=== PATIENT | female | born 1935 | race Caucasian/White ===

== ENCOUNTER 2017-10-05 09:16 | Emergency (ER) | payer MEDICARE, BC, SELFPAY ==
[2017-10-05 09:20] VITALS: BP 155/82; PULSE 90; RESP 17; TEMP 36.7; O2SAT 95; BMI 30.9
--- NOTE | 2017-10-05 09:43 | EKG12_ITS ---
Test Reason : COUGH Blood Pressure : / mmHG Vent. Rate : 079 BPM Atrial Rate : 079 BPM P-R Int : 140 ms QRS Dur : 078 ms QT Int : 372 ms P-R-T Axes : 056 015 082 degrees QTc Int : 426 ms Sinus rhythm with Premature atrial complexes Otherwise normal ECG Confirmed by ELVIN ALEXSI, MARIE ([id number]), news copy editor AUGUSTUS LIU ([id number]) on 10/07/2017 1:45:02 PM Referred By: KELSEY Confirmed By:MARIE OCONNOR MD
[2017-10-05 10:08] LABS: Absolute Lymphocyte Count 1.31 X10^3/ul (0.83-4.51); Absolute Neutrophil Count 8.2 X10^3/uL (2.0-7.7); Basophil# 0.03 X10^3/uL; Basophil% 0.3 % (0-1); Eosinophil# 0.09 X10^3/uL; Eosinophils% 0.9 % (0-5); Lymphocyte # 1.31 X10^3/ul (4.0); Lymphocyte % 12.6 % (19-41); Mean Corp Hgb Conc 34.8 g/gl (32-36); Mean Corpuscular Hgb 32.9 pg (27.0-32.0); Mean Corpuscular Volume 94.5 fL (81-99); Mean Platelet Vol. 9.8 fl (6.2-12.0); Monocyte# 0.67 X10^3/uL; Monocyte% 6.5 % (0-10); Neutrophil # 8.24 X10^3/uL (2.7-7.7); Neutrophil % 79.4 % (47-70); Platelet Count 231 K/mm3 (150-450); RBC Distribution Width CV 12.8 % (11.6-14.6); RBC Distribution Width SD 43.2 fl (35.1-43.9); Red Blood Count 4.87 M/mm3 (4.2-5.4); White Blood Count 10.4 K/mm3 (4.4-11.0)
[2017-10-05 10:12] LABS: POSITIVE COUNT NO; POSITIVE DIFFERENTIAL NO; POSITIVE MORPHOLOGY NO
--- NOTE | 2017-10-05 10:14 | RAD_ITS ---
STUDY: X-RAY CHEST REASON FOR EXAM: Female, 82 years old. Dizziness. Cough. TECHNIQUE: PA and lateral views of the chest. COMPARISON: None. FINDINGS: EKG electrodes are seen. The lungs are clear and expanded. There is no demonstrated pleural abnormality. Normal size heart. Normal mediastinum and melchor. Normal visualized pulmonary arteries. There is atherosclerotic tortuosity of the aortic arch and descending thoracic aorta. There are diffuse degenerative changes of the visualized thoracic spine. Normal visualized ribs, clavicles, and shoulders. There is no demonstrated abnormality of the visualized soft tissue structures of the upper abdomen. RAD/Chest PA and Lateral IMPRESSION: No acute abnormality is present. Electronically Signed: Raji Zepeda MD at 10:39 EDT Tel [phone], Service support ,
[2017-10-05 10:20] LABS: Anion Gap 8 (5-15); BUN 19 mg/dL (7-18); BUN/Creat Ratio 21.8 RATIO (10-20); Calcium,Total 9.3 mg/dL (8.5-10.1); Chloride 103 mmol/L (98-107); Creatinine, Serum 0.87 mg/dL (0.55-1.02); EST Glomerular Filtration Rate 66 mL/min (>60); Est Glom Filt Rate - Afr Amer 80 mL/min (>60); Estimated Creatinine Clearance 39.43 ml/min; Glucose 182 mg/dL (74-106); Potassium 3.4 mmol/L (3.5-5.1); Sodium Level 140 mmol/L (136-145)
[2017-10-05 10:49] VITALS: BP 157/67; BP 160/72; BP 172/80; PULSE 79; PULSE 98; PULSE 99
--- NOTE | 2017-10-05 10:58 | ED.VISSUMM ---
- ER Visit Summary Date of Service: 10/05/17 Chief Complaint: Cough History of Present Illness: The patient is a [address] Manlye. She reports that she has a cough that began yesterday. It is nonproductive. She denies any fever or chills. She reports she has chest pain with coughing only. She reports that she has mild shortness of breath. States that she does feel lightheaded. This is increased with standing and bending over. She has not passed out. Physical Examination: Vitals: Stable. Afebrile. General: Well-nourished and well-developed. Head: Normocephalic atraumatic. Neck: Supple, no lymphadenopathy. No JVD. Nontender. Cardiovascular: Regular rate and rhythm. No murmurs. Respiratory: No respiratory distress. Clear to auscultation bilaterally. Abdominal: Soft, nontender, nondistended, normal bowel sounds. No guarding, rebound, or peritoneal signs. Back: Nontender. Extremities: Nontender, no edema. Skin: Normal color, no rash. Neurologic: Alert and oriented ?3. Cranial nerves II through XII are intact. Normal strength and sensation. Psych: Normal affect. Test Results: Chest x-ray shows chronic changes. No infiltrate. EKG is sinus at 79 with PACs. Is unchanged from 2015. Troponin is negative. Chem-7 marked potassium 3.4, BUN 19, glucose 182. CBC is marked for hemoglobin 16.0, 7 neutrophils 79, leukocytes of 13. Emergency Department Course and Treatment: She is given 500 cc bolus of normal saline. She is to Hillary Grey p.o. She is resting comfortably. Treatment Plan: Patient will be discharged [facility]. Instructed to follow-up with her primary care physician 1 week if not improving. Return to the emergency department for any worsening symptoms. Disposition: To home in improved and stable condition. Impression: 1. URI. This note was generated with [employer] dictation software. It may contain incorrect words, spelling, and punctuation that were not noted in review of the chart prior to signing ED Disposition - Plan for ED Patient: Disposition: Home or Assisted Living Chief Complaint: Cough Instructions: ED Upper Resp Infec No Abx Tx Prescriptions: Benzonatate [Tessalon Perle] 200 mg PO TID PRN PRN #20 capsule PRN Reason: Cough Referrals: Corona Manley DO [Primary Care Provider] - 1 Week if not improving
[2017-10-05 11:10] VITALS: BP 172/80; PULSE 87; RESP 18; O2SAT 96
[2017-10-05] MEDS: Benzonatate 100 MG Capsule 200 MG PO (11:10)
== END 2017-10-05 11:17 | disposition home or self-care (01) ==
PROVIDERS: Emergency Provider Emergency Medicine; Family Provider Student in an Organized Health Care Education/Training Program; PCP Student in an Organized Health Care Education/Training Program
DX: J06.9 Acute upper respiratory infection, unspecified (principal); E11.9 Type 2 diabetes mellitus without complications; I10 Essential (primary) hypertension; E78.00 Pure hypercholesterolemia, unspecified; G47.33 Obstructive sleep apnea (adult) (pediatric); Z79.4 Long term (current) use of insulin; Z79.899 Other long term (current) drug therapy
CPT/HCPCS: 71046; 80048; 83735; 84484; 85025; 93005; 96360; 99285; J7030; J7040; A4216

== ENCOUNTER 2018-08-15 08:35 | Inpatient (IN) | payer MEDICARE, BC, SELFPAY ==
[2018-08-07 14:45] VITALS: BP 140/64; PULSE 66; RESP 18; TEMP 36.3; O2SAT 97; BMI 29.4
--- NOTE | 2018-08-08 20:55 | HP.PCM_ITS ---
History and Physical DATE OF SURGERY: 08/15/2018 SCHEDULED PROCEDURE: Revision right partial total knee to a total knee replacement HISTORY OF PRESENT ILLNESS: This is an 82-year-old female who has been having ongoing pain in the right knee. Patient had a previous partial right total knee arthroplasty in [address] Bailey in [place]. Patient states she did not see any significant improvement after the surgery with regards to her pain. She had decreased motion and had to undergo a manipulation for the right knee. She denied any postoperative infections. She continues to have ongoing pain in the medial aspect of the right knee. She has increased pain going up and down stairs and walking any amount of distance. Patient also has increased pain with prolonged sitting or getting up from a seated position. Patient has been using a stationary bike but does state she has increased pain. She gets intermittent swelling. After discussing treatment options with Dr. Florentino Omalley, the patient does wish to proceed with a revision right partial knee arthroplasty to a right total knee arthroplasty. We have obtained surgical clearance from philip glover's primary care physician Dr. Manley. Patient has a medical history pertinent for type 2 diabetes mellitus, hypertension, and sleep apnea. She currently denies chest pain, shortness of breath, fevers chills, or recent infections. REVIEW OF SYSTEMS: ROS: Const: Denies change in appetite, fever,or weight change. CV: Denies chest pain, heart murmur and irregular heartbeat. Resp: Denies cough, pneumonia, shortness of breath, tuberculosis and wheezing. GI: Denies constipation, diarrhea, heartburn, nausea, rectal itching, bloody stools and vomiting. : Denies incontinence. Musculo: Reports pain, trouble walking and weakness, but denies leg swelling. Skin: Denies Raynaud's, history of shingles and tattoo. Neuro: Reports tremor but denies ambulatory dysfunction, dizziness and numbness/tingling. Psych: Denies anxiety, insomnia and stress. Romeo/Lymph: Denies anemia, bleeding/bruising tendency and past transfusion. Reviewed, no changes. PAST MEDICAL HISTORY: Advance Care Plan: No Advance Directives Effective Date: 10/27/2015 PMH: Medical Problems: Diabetes, High Blood Pressure, Hypercholesterolemia, Sleep Apnea Accidents: None Surgical Hx: Appendectomy - (1979) Tonsillectomy Bilat Knee Replacement - (2008) Bladder Lift, RT Hand Trigger Fingers Anesthesia Complications: None Assistive Devices: Cane Reviewed and updated. SOCIAL HISTORY: SH: Marital: Single.Occupation: Retired.Work Status: Retired.Hand Dominance: Right- handed. Personal Habits: Cigarette Use: Never Smoked Cigarettes.Smokeless Tobacco: Never Used Smokeless Tobacco.Alcohol: Occasionally.Drug Use: Denies Use.Enjoy Exercising: Daily. Reviewed and updated. VITALS: Ht: 62.5 Wt: 161lb Wt k.030 BMI: 29.0 BP: 138/80 Pulse: 70 Resp: 16 T: 97.8 T: 36.6C ALLERGIES: Gemfibrozil Lisinopril Losartan Lovaza Metformin Statins Ciprofloxacin Fenofibrate MEDICATIONS: Lyrica 75 mg 1 tab by mouth every night, Maxzide-25 37.5-25 mg 1 tablet DAILY by mouth, Vitamin D 2000 Unit 1 tablet DAILY by mouth, Humulin 70/30 (70-30) 100 Unit/ML 20 units once daily by injection, Biotin 5000 mcg 1po qday PRE-OP EXAM: General appearance:NORMAL Other: Eyes: Conjunctivae and lids: NORMAL Pupils: ERR Ears, Nose, Mouth, and Throat: NORMAL Other: Inspection of lips, teeth and gums: NORMAL Other: Neck: Examination of neck: no masses noted. Respiratory: Assessment of respiratory effort: NORMAL Other: Auscultation of lungs: clear to auscultation no wheezes, rhonchi or rales. Cardiovascular: Auscultation of heart: regular rate and rhythm, no murmurs, gallops or rubs. Exam of carotid arteries: NORMAL Other: Gastrointestinal: Exam of abdomen: soft, nontender, nondistended bowel sounds present. PHYSICAL EXAMINATION: Patient does walk with an antalgic gait. Previous incision is well-healed without erythema or signs of infection. Patient does have tenderness to palpation over the medial aspect of the right knee. Range of motion right knee: Lacks 3 of full extension to 120 flexion. Stable to varus and valgus stress test. Stable to anterior drawer test. Sensation intact to light touch. IMAGING STUDIES: Previous x-rays does show a Domí[employer]uez [employer] Nephew partial knee replacement with femoral implant appeared to be well fixed. Tibial implant does show on the lateral view lucency under the tibial implant. No acute findings for fracture. IMPRESSION: 1. Painful left unicompartmental knee replacement with lucency under tibial component 2. Hypertension 3. Type 2 diabetes mellitus 4. Sleep apnea 5. Hypercholesterolemia PLAN: Dr. Florentino Omalley did discuss and review with the patient all treatment options including surgical versus nonsurgical options. Patient does wish to proceed with the above-stated procedure. Potential risks, benefits, and complications of the procedure were discussed in detail including but not limited to , infection, nerve and blood vessel damage, persistent pain, numbness, tingling, paresthesias, blood clot, pulmonary embolism, and requirement for possible further surgery. The patient expressed full understanding and has no further questions for the doctor. Patient does agree to proceed with the above-stated procedure and has signed the surgery consent form. This dictation was created using voice recognition software. Phonetic and/or grammatical errors may exist.. ___ I have re-examined the patient. There are no clinical changes since date of exam. ___ See progress notes for changes. ___ Dictated on admission Date: Time: Signature:
[2018-08-15] VITALS (8 sets, daily range): BP systolic 127–156; BP diastolic 45–64; PULSE 67–93; RESP 14–18; TEMP 36.2–36.8; O2SAT 95–100; BMI 29.4
[2018-08-15] MEDS: Lactated Ringers 1,000 ML 999 ML IV (09:21)
[2018-08-15] MEDS: Celecoxib 200 MG Capsule 400 MG PO (09:24)
[2018-08-15] MEDS: Acetaminophen 500 MG Tablet 1000 MG PO ×2 (09:24→22:20)
[2018-08-15 09:41] LABS: Bedside Glucose 183 mg/dL (70-110)
[2018-08-15 09:58] LABS: Anion Gap 10 (5-15); BUN 18 mg/dL (7-18); BUN/Creat Ratio 19.5 RATIO (10-20); Calcium,Total 8.8 mg/dL (8.5-10.1); Chloride 104 mmol/L (98-107); Creatinine, Serum 0.92 mg/dL (0.55-1.02); EST Glomerular Filtration Rate 62 mL/min (>60); Est Glom Filt Rate - Afr Amer 75 mL/min (>60); Estimated Creatinine Clearance 36.64 ml/min; Glucose 166 mg/dL (74-106); Potassium 3.7 mmol/L (3.5-5.1); Sodium Level 142 mmol/L (136-145)
[2018-08-15] MEDS: Cefazolin 2 GM in 0.9% Normal Saline 100 ML IV (10:23)
--- NOTE | 2018-08-15 12:45 | PCM.OPRPT ---
Report of Operation Date of Procedure: 08/15/18 Pre-Operative Diagnosis: Painful right partial knee replacement, aseptic loosening Post-Operative Diagnosis: Painful right partial knee replacement, aseptic loosening Surgery/Procedure Performed:: Revision right total knee replacement entire femoral and tibial components Description of Surgical Findings:: Stable knee with good patella tracking timber rider: Reddy Farmer Type of Anesthesia:: Spinal Anesthesiologist: Al Butterfield Special Medications: 2 g Ancef, 1 g TXA at incision, 1 g TXA closure, 10 mg Decadron, joint cocktail (5 mg Duramorph, 30 mL of 0.5% Ropivicaine, 1000 units of epinephrine, 30 mg of Toradol) Specimen's removed: Bony cuts, 3 separate specimens were sent to micrology Estimated Blood Loss (mL): 50 Fluids Replaced: 1000 ML crystalloid Description of Procedure: Implants used: Femur: Size 3 TS femur, 30 mm x 15 mm cemented stem Tibia: Size 3 universal tibial baseplate Poly: 11 mm PS polyethylene Brief history operative indications: 83-year-old female with previous history of dual Domínguez [employer] Nephew partial knee replacement. Patient had increasing pain. Radiographic evidence of loosening. Infection was ruled out. After this we discussed revision total knee replacement with risks and benefits including but not limited to blood loss, DVTs, PEs, neurovascular damage, infection, general risk of anesthesia including loss of life. Patient demonstrated understanding was able signed informed consent. Procedure: On the date of procedure patient's right lower extremity was marked in the preoperative area. The patient was then taken back to the operating room where the patient was placed on the table in the supine position. All bony prominences were identified a well-padded. Anesthesia assumed control of the C-spine and airway and remained controlled throughout the remainder of the procedure. A tourniquet was placed on the right upper thigh and the leg was prepped in a sterile fashion. The surgeon then scrubbed at this time. Upon reentering the room right lower extremity was draped in a standard orthopedic fashion. A timeout was then called and everyone agreed upon the side, the site, the procedure to be performed, patient's identity and antibiotics given. An Esmarch bandage was used to exsanguinate the extremity and the tourniquet was placed up to 250 mmHg with the knee in flexion. A midline skin incision was made using the previous incision and extending it proximally and distally to identify normal tissue planes. Medial and lateral flaps were developed appropriate releases. The standard medial parapatellar arthrotomy was made and the patella was subluxed laterally. At this time an aggressive synovectomy was performed re-creating the medial gutter first, then the suprapatellar pouch than the lateral gutter. Once this was completed the knee was flexed up an osteotome was used to remove the tibial polyethylene. The remainder of the synovium was debrided. The standard deep MCL release was done and the patella scar pad was resected and lateral releases were performed. Pins were placed in the femur and tibia and mon.ki navigation was used to register the anatomy of the knee. Once this was done we took the knee through range of motion verified alignment. Next our attention was directed to the femur. Wear flexible osteotomes and TPS saw were used to break up the implant cement interface. This was done both medially and laterally. After this is adequately lucent bone tamp was used to remove the femur component from the end of the bone. This was done with minimal bone loss. At this time attention was now directed towards the proximal tibia. Possible osteotome and TPS saw were then used to break up the proximal tibia implant interface and stacked osteotomes were used to remove the tibial implant. This was done with minimal bone loss. Attention was then turned towards the distal femur. Using the navigation guide the distal femoral guide cut was pinned into place in neutral position with 4 degrees of flexion. This allowed a cleanup cut on the medial condyle with a dual was. And a fresh cut on the lateral condyle. Once this was done using our navigation we pinned the cutting guide in the appropriate external rotation. Once the pre-drill holes were made the 3 and 1 cutting guide was put into place cutting anterior chamfer, or anterior condylar cuts, posterior chamfer and posterior condylar cuts. Once this was done the box cutting guide was pinned into place and the box cut was made. The adapter was placed in the TS box cut was made. Once this was done Boss reamer was used to open up the femoral canal. Our attention was directed towards the tibia. Using the previous navigation information the tibial cutting guide was pinned into place for a neutral cut. This gave us a good cleanup cut medially. Once we made the cut using the cell protecting the soft tissues navigation was used to verify the accuracy of the cut. Once were happy with this cut [place] secretary was placed in soft tissue was cleaned up medially and laterally. 40 cc of the periarticular injection were given in the posterior medial corner of the knee. Cautery was used to obtain hemostasis. The appropriate trials were then placed on the femur and tibia. A trial polyethylene was trialed to ensure proper balancing and stability of the knee. Patella tracking, was then verified and corrected appropriately as needed. Our attention was then directed to the patella. The patella was stable with good integrity. This time we elected to keep the previous patella button. Final components were verified and opened, 6 liters of normal saline were irrigated throughout the joint under low-pressure lavage. Then the cement was mixed in a vacuum. [employer] cement with tobramycin was used. The wound was copiously irrigated with normal saline. When the cement was ready the components were cemented into place starting with the tibia, femur. The trial poly component was placed and the knee was placed in full extension. All excess cement was removed in the process. Once the cement had cured the tracking, alignment and balance were verified and a size 11 mm PS polyethylene component was placed. Once the final components were placed the wound was copiously irrigated with normal saline solution and the remainder of the periarticular injection was given. The wound was closed in a layer turner fashion using #1 vicryl interrupted sutures for the arthrotomy, 2-0 interrupted Vicryl for the subcuticular layer and barbi for final skin closure. A sterile compressive dressing was then placed. The patient was then awakened from anesthesia, transferred to the [facility] and transferred to the PACU for recovery. Post op plan DVT ppx: Relative for DVT prophylaxis, thigh high compression stockings Follow up: in office in 2 weeks for wound check PT: to start POD #0 at hospital, outpatient PT should be arranged. My physician life science research assistant was a vital part of this case. He was important in appropriate retraction during the case, and protection of soft tissues during bony cuts. His intimate knowledge of the case and my steps aided in safe and expedient completion of the procedure as well as appropriate position of the leg during the case. He was also vital in assisting with closure under my direct supervision. Grafts/Implants Used: [employer] total knee system - Complications None - Admit VTE Documentation VTE Present on Admission: No VTE Mechan Device Prophylaxis: SCD's, Thigh High PARKER Duque VTE Pharm Prophylaxis ordered?: Yes
[2018-08-15] MEDS: Scopolamine 1mg/72hr Patch 1 PATCH TD (13:17)
--- NOTE | 2018-08-15 13:34 | RAD_ITS ---
STUDY: X-RAY - RIGHT KNEE REASON FOR EXAM: Female, 83 years old. Postop TECHNIQUE: 2 view(s) of the knee. COMPARISON: None. FINDINGS: Normal visualized distal femur. Normal visualized proximal tibia and fibula. Normal proximal tibiofibular articulation. There is right total knee replacement. Alignment is near-anatomic.. There is postoperative change in the soft tissues. There are skin barbi. RAD/Knee 1 or 2 Views IMPRESSION: Right knee replacement. Electronically Signed: Edgar Echeverria MD at 16:44 EST , Service support ,
[2018-08-15] MEDS: Senna/Docusate Sodium 1 Tablet 2 TABLET PO ×2 (15:17→22:20)
[2018-08-15] MEDS: Triamterene 37.5MG/Hctz 25MG Capsule 1 CAP PO (15:17)
[2018-08-15] MEDS: Famotidine 20 MG Tablet PO (15:18)
[2018-08-15] MEDS: Glucerna Shake 120 ML LIQUID PO (16:22)
[2018-08-15] MEDS: Cefazolin 1 GM/50 ML BAG IV (16:22)
[2018-08-15] MEDS: oxyCODONE 5 MG Tablet PO (16:39)
[2018-08-15 17:16] LABS: Bedside Glucose 113 mg/dL (70-110)
--- NOTE | 2018-08-15 17:22 | PCM.CONS.GEN ---
Problem List (1) Osteoarthritis Status: Acute Qualifiers: Osteoarthritis location: knee Osteoarthritis type: unspecified Laterality: right Qualified Code(s): M17.11 - Unilateral primary osteoarthritis, right knee (2) HTN (hypertension) Status: Chronic Qualifiers: Hypertension type: essential hypertension Qualified Code(s): I10 - Essential (primary) hypertension (3) HLD (hyperlipidemia) Status: Chronic Qualifiers: Hyperlipidemia type: pure hypercholesterolemia Qualified Code(s): E78.00 - Pure hypercholesterolemia, unspecified; E78.0 - Pure hypercholesterolemia (4) DEVAN (obstructive sleep apnea) Status: Chronic (5) Diabetes mellitus, type II Status: Chronic Qualifiers: Diabetes mellitus alf insulin use: with alf use Diabetes mellitus complication status: with unspecified complications Qualified Code(s): E11.8 - Type 2 diabetes mellitus with unspecified complications; Z79.4 - ad terminal makeup operator (current) use of insulin Reason for Consult Date of Consultation: 08/15/18 Reason for Consultation: Medical management History of Present Illness: The patient is a 83 y/o F w/ PMHx: DEVAN, HTN, HLD, Diabetes mellitus type II, Severe OA who presents to the [facility] on 08/15/18 for planned revision right partial total knee to a total knee replacement secondary to failed conservative interventions with noted no market improvement following her initial replacement in 2010 with decreased of motion, debility with primarily medial aspect pain noted worsened with activity especially going up and down the stairs or prolonged walking however also increased if she remained seated for a long time especially with an attempt to get up. Had no perioperative events did have a bout of emesis following first meal intake with some nausea but has been up and moving and walking in the room with resolution of block with requested medical management evaluation per orthopedic surgery. Past Medical History Past Medical History (Chronic Problems): Chronic Problems HTN (hypertension) (Chronic) HLD (hyperlipidemia) (Chronic) DEVAN (obstructive sleep apnea) (Chronic) Diabetes mellitus, type II (Chronic) Allergies omega-3 acid ethyl esters [From Lovaza] Allergy (Verified 08/14/18 13:18) Shortness of breath aspirin Adverse Reaction (Verified 08/07/18 14:28) Upset Stomach ciprofloxacin [From Cipro] Adverse Reaction (Verified 08/07/18 14:28) Unknown fenofibrate Adverse Reaction (Verified 08/07/18 14:28) Upset Stomach gemfibrozil Adverse Reaction (Verified 08/07/18 14:28) Diarrhea lisinopril Adverse Reaction (Verified 08/07/18 14:28) Unknown losartan Adverse Reaction (Verified 08/07/18 14:28) Unknown metformin Adverse Reaction (Verified 08/07/18 14:28) Upset Stomach Bhsoyez-Iab-Swg Reductase Inhibitor Adverse Reaction (Verified 08/07/18 14:28) Upset Stomach Home Medications: Ambulatory Orders Medication Instructions Recorded Cholecalciferol (VIT D3) [Vitamin 2,000 unit PO DAILY 03/09/16 D] Triamterene/Hydrochlorothiazid 1 tab PO DAILY 03/09/16 [Triamterene-Hctz 37.5-25 mg Tb] Biotin 5,000 mcg PO DAILY 08/07/18 Insulin NPH Human Isophane 40 units SQ DAILY 08/15/18 [Novolin N] Surgical History: - - Appendectomy, tonsillectomy, bilateral total knee replacements, bladder lift, right hand trigger finger surgery. 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 Paternal History Items: - - Patient states she does not know her paternal family history. Review of Systems Constitutional: Reports: Malaise, Weakness, Fatigue. Denies: Chills, Fever, Weight Change HEENT: Denies: Head Aches, Sinus Congestion, Sinus Drainage Cardiovascular: Denies: Chest Pain, Palpitations Respiratory: Denies: Cough, Shortness of breath at rest, Sputum production Gastrointestinal: Reports: Nausea, Vomiting. Denies: Abdominal Pain Genitourinary: Denies: Dysuria Musculoskeletal: Reports: Joint Pain, Joint stiffness, Joint swelling, Joint Tenderness, Leg Pain Skin: Reports: Skin Changes. Denies: Rash, Wounds Neurological: Denies: Numbness, Tingling, Focal weakness Psychiatric: Reports: Anxiety, Depression. Denies: Homicidal Ideations, Suicidal Ideations Hematologic/ Lymphatic: Denies: Easy Bruising, Easy Bleeding Patient Problems: Active and Suspected Problems Osteoarthritis (Acute) Subjective: Laying in the bed, fatigued appearance, notes bout of emesis following recent meal. Objective: Physical Examination: General: awake, alert, oriented x 3 and cooperative, seated upright in the bed in no apparent distress, but does note recent bout emesis following meal. Skin: normal color, turgor, no icterus, cyanosis, s/p R TKR revision, dressing in place. HEENT: AT/NC, EOMI, PERRLA, mildly dry MM, no carotid bruits or JVD noted. Lungs: CTA bilaterally, moderate effort, mild decrease BL bases, no rales, ronchi or wheezing. Heart: Regular rate and rhythm; no gallop, rub audible. Abdomen: soft, NTTP, ND, normal BS, no HSM. Extremities: no cyanosis, clubbing, s/p R Knee replacement revision with dressing in place, block has worn off, moving extremity, distal pulses intact. Neurological: patient awake, alert, oriented x 3; cognitive function intact; pupils equally reactive to light and accomodation; cranial nerves II-XII grossly normal, moving all 4 extremities although limited RLE s/p R TKR revision, dressing in place, strength accordingly moderately to severely globally decreased. Psychiatric: affect appears normal, fatigued, no acute evidence of depressive or anxiety feelings. - Physical Exam Vital Signs Temp Pulse Resp BP Pulse Ox 97.5 F L 67 18 132/55 H 96 08/15/18 16:18 08/15/18 16:18 08/15/18 16:18 08/15/18 16:18 08/15/18 16:18 Oxygen Delivery Method Room Air Weight: 160 lb 11.834 oz Body Mass Index (BMI) 29.4 Intake and Output for Last 24 Hours 08/13/18 08/14/18 08/15/18 23:59 23:59 23:59 Intake Total 1400 / 1400 Balance 1400 / 1400 Laboratory Tests Past 24 Hrs 08/15/18 09:35 Sodium 142 Potassium 3.7 Chloride 104 Carbon Dioxide 28.0 Anion Gap 10 BUN 18 Creatinine 0.92 Estim Creat Clear Calc 36.64 Est GFR (MDRD) Af Amer 75 Est GFR (MDRD) Non-Af 62 BUN/Creatinine Ratio 19.5 Glucose 166 H Calcium 8.8 POC Glucose 08/15/18 08/15/18 16:15 09:19 POC Glucose 113 H 183 H Assessment/Plan All Active Problems Osteoarthritis (Acute) The patient is a 83 y/o F w/ PMHx: DEVAN, HTN, HLD, Diabetes mellitus type II, Severe OA who presents to the [facility] on 08/15/18 for planned revision right partial total knee to a total knee replacement secondary to failed conservative interventions. (1) Severe Osteoarthritis, R Knee: Failed conservative therapies and treatments, no marked pain relief following initial replacement 2010, progressively worsening, admitted per Dr. Omalley for planned R knee revision, post-operative pain management, bowel regimen, DVT Prophylaxis, PT/OT/CM per Orthopedic surgery discretion. With some postoperative nausea without emesis following first initial meal, patient has 2 antiemetics available and discussed this with nursing. (2) Diabetes mellitus type II: Continue home insulin regimen, ADA diet, accu checks w/ ISS. (3) Hypertension: Continue home regimen including triamterene, hydrochlorothiazide, PRN hydralazine. (4) Hyperlipidemia: Not on regimen, several allergies noted alluding to statin, fenofibrate, gemfibrozil, Lovaza although suspicious given this is only filtered fish oil. (5) DEVAN: Patient is noncompliant with CPAP and has been so for many years, encouraged patient to consideration for reassessment as several new face and nasal masks available. (6) GERD: Famotidine. (7) DVT prophylaxis: SCD, Xarelto per orthopedic surgery discretion. Code Visit Inpatient E&M: 74319 Subs Hosp L3
--- NOTE | 2018-08-15 17:27 | CON.PCM_ITS ---
Problem List (1) Osteoarthritis Status: Acute Qualifiers: Osteoarthritis location: knee Osteoarthritis type: unspecified Laterality: right Qualified Code(s): M17.11 - Unilateral primary osteoarthritis, right knee (2) HTN (hypertension) Status: Chronic Qualifiers: Hypertension type: essential hypertension Qualified Code(s): I10 - Essential (primary) hypertension (3) HLD (hyperlipidemia) Status: Chronic Qualifiers: Hyperlipidemia type: pure hypercholesterolemia Qualified Code(s): E78.00 - Pure hypercholesterolemia, unspecified; E78.0 - Pure hypercholesterolemia (4) DEVAN (obstructive sleep apnea) Status: Chronic (5) Diabetes mellitus, type II Status: Chronic Qualifiers: Diabetes mellitus detention insulin use: with detention use Diabetes mellitus complication status: with unspecified complications Qualified Code(s): E11.8 - Type 2 diabetes mellitus with unspecified complications; Z79.4 - termite treater (current) use of insulin Reason for Consult Date of Consultation: 08/15/18 Reason for Consultation: Medical management History of Present Illness: The patient is a 83 y/o F w/ PMHx: DEVAN, HTN, HLD, Diabetes mellitus type II, Severe OA who presents to the [facility] on 08/15/18 for planned revision right partial total knee to a total knee replacement secondary to failed conservative interventions with noted no market improvement following her initial replacement in 2010 with decreased of motion, debility with primarily medial aspect pain noted worsened with activity especially going up and down the stairs or prolonged walking however also increased if she remained seated for a long time especially with an attempt to get up. Had no perioperative events did have a bout of emesis following first meal intake with some nausea but has been up and moving and walking in the room with resolution of block with requested medical management evaluation per orthopedic surgery. Past Medical History Past Medical History (Chronic Problems): Chronic Problems HTN (hypertension) (Chronic) HLD (hyperlipidemia) (Chronic) DEVAN (obstructive sleep apnea) (Chronic) Diabetes mellitus, type II (Chronic) Allergies omega-3 acid ethyl esters [From Lovaza] Allergy (Verified 08/14/18 13:18) Shortness of breath aspirin Adverse Reaction (Verified 08/07/18 14:28) Upset Stomach ciprofloxacin [From Cipro] Adverse Reaction (Verified 08/07/18 14:28) Unknown fenofibrate Adverse Reaction (Verified 08/07/18 14:28) Upset Stomach gemfibrozil Adverse Reaction (Verified 08/07/18 14:28) Diarrhea lisinopril Adverse Reaction (Verified 08/07/18 14:28) Unknown losartan Adverse Reaction (Verified 08/07/18 14:28) Unknown metformin Adverse Reaction (Verified 08/07/18 14:28) Upset Stomach Gyfhpzm-Mbc-Mup Reductase Inhibitor Adverse Reaction (Verified 08/07/18 14:28) Upset Stomach Home Medications: Ambulatory Orders Medication Instructions Recorded Cholecalciferol (VIT D3) [Vitamin 2,000 unit PO DAILY 03/09/16 D] Triamterene/Hydrochlorothiazid 1 tab PO DAILY 03/09/16 [Triamterene-Hctz 37.5-25 mg Tb] Biotin 5,000 mcg PO DAILY 08/07/18 Insulin NPH Human Isophane 40 units SQ DAILY 08/15/18 [Novolin N] Surgical History: - - Appendectomy, tonsillectomy, bilateral total knee replacements, bladder lift, right hand trigger finger surgery. 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 Paternal History Items: - - Patient states she does not know her paternal family history. Review of Systems Constitutional: Reports: Malaise, Weakness, Fatigue. Denies: Chills, Fever, Weight Change HEENT: Denies: Head Aches, Sinus Congestion, Sinus Drainage Cardiovascular: Denies: Chest Pain, Palpitations Respiratory: Denies: Cough, Shortness of breath at rest, Sputum production Gastrointestinal: Reports: Nausea, Vomiting. Denies: Abdominal Pain Genitourinary: Denies: Dysuria Musculoskeletal: Reports: Joint Pain, Joint stiffness, Joint swelling, Joint Tenderness, Leg Pain Skin: Reports: Skin Changes. Denies: Rash, Wounds Neurological: Denies: Numbness, Tingling, Focal weakness Psychiatric: Reports: Anxiety, Depression. Denies: Homicidal Ideations, Suicidal Ideations Hematologic/ Lymphatic: Denies: Easy Bruising, Easy Bleeding Patient Problems: Active and Suspected Problems Osteoarthritis (Acute) Subjective: Laying in the bed, fatigued appearance, notes bout of emesis following recent meal. Objective: Physical Examination: General: awake, alert, oriented x 3 and cooperative, seated upright in the bed in no apparent distress, but does note recent bout emesis following meal. Skin: normal color, turgor, no icterus, cyanosis, s/p R TKR revision, dressing in place. HEENT: AT/NC, EOMI, PERRLA, mildly dry MM, no carotid bruits or JVD noted. Lungs: CTA bilaterally, moderate effort, mild decrease BL bases, no rales, ronchi or wheezing. Heart: Regular rate and rhythm; no gallop, rub audible. Abdomen: soft, NTTP, ND, normal BS, no HSM. Extremities: no cyanosis, clubbing, s/p R Knee replacement revision with dressing in place, block has worn off, moving extremity, distal pulses intact. Neurological: patient awake, alert, oriented x 3; cognitive function intact; pupils equally reactive to light and accomodation; cranial nerves II-XII grossly normal, moving all 4 extremities although limited RLE s/p R TKR revision, dressing in place, strength accordingly moderately to severely globally decreased. Psychiatric: affect appears normal, fatigued, no acute evidence of depressive or anxiety feelings. - Physical Exam Vital Signs Temp Pulse Resp BP Pulse Ox 97.5 F L 67 18 132/55 H 96 08/15/18 16:18 08/15/18 16:18 08/15/18 16:18 08/15/18 16:18 08/15/18 16:18 Oxygen Delivery Method Room Air Weight: 160 lb 11.834 oz Body Mass Index (BMI) 29.4 Intake and Output for Last 24 Hours 08/13/18 08/14/18 08/15/18 23:59 23:59 23:59 Intake Total 1400 / 1400 Balance 1400 / 1400 Laboratory Tests Past 24 Hrs 08/15/18 09:35 Sodium 142 Potassium 3.7 Chloride 104 Carbon Dioxide 28.0 Anion Gap 10 BUN 18 Creatinine 0.92 Estim Creat Clear Calc 36.64 Est GFR (MDRD) Af Amer 75 Est GFR (MDRD) Non-Af 62 BUN/Creatinine Ratio 19.5 Glucose 166 H Calcium 8.8 POC Glucose 08/15/18 08/15/18 16:15 09:19 POC Glucose 113 H 183 H Assessment/Plan All Active Problems Osteoarthritis (Acute) The patient is a 83 y/o F w/ PMHx: DEVAN, HTN, HLD, Diabetes mellitus type II, Severe OA who presents to the [facility] on 08/15/18 for planned revision right partial total knee to a total knee replacement secondary to failed conservative interventions. (1) Severe Osteoarthritis, R Knee: Failed conservative therapies and treatments, no marked pain relief following initial replacement 2010, progressively worsening, admitted per Dr. Omalley for planned R knee revision, post-operative pain management, bowel regimen, DVT Prophylaxis, PT/OT/CM per Orthopedic surgery discretion. With some postoperative nausea without emesis following first initial meal, patient has 2 antiemetics available and discussed this with nursing. (2) Diabetes mellitus type II: Continue home insulin regimen, ADA diet, accu checks w/ ISS. (3) Hypertension: Continue home regimen including triamterene, hydrochlorothiazide, PRN hydralazine. (4) Hyperlipidemia: Not on regimen, several allergies noted alluding to statin, fenofibrate, gemfibrozil, Lovaza although suspicious given this is only filtered fish oil. (5) DEVAN: Patient is noncompliant with CPAP and has been so for many years, encouraged patient to consideration for reassessment as several new face and nasal masks available. (6) GERD: Famotidine. (7) DVT prophylaxis: SCD, Xarelto per orthopedic surgery discretion. Code Visit Inpatient E&M: 55858 Subs Hosp L3
[2018-08-15] MEDS: proMETHazine 25 MG/ML Syringe 12.5 MG IM (18:03)
[2018-08-15] MEDS: Insulin Lispro 100 UNIT/ML INSULN.PEN SC (22:19)
[2018-08-15] MEDS: Meloxicam 7.5 MG Tablet PO (22:20)
[2018-08-15 22:56] LABS: Bedside Glucose 152 mg/dL (70-110)
[2018-08-16 00:11] VITALS: BP 119/48; PULSE 61; RESP 16; TEMP 36.6; O2SAT 92
[2018-08-16] MEDS: Cefazolin 1 GM/50 ML BAG IV (03:00)
[2018-08-16] MEDS: Ketorolac 15 MG/ML Vial IV (03:47)
[2018-08-16 06:32] LABS: Hemoglobin 13.5 g/dl (12.0-15.0); Mean Corp Hgb Conc 32.9 g/gl (32-36); Mean Corpuscular Hgb 31.5 pg (27.0-32.0); Mean Corpuscular Volume 95.8 fL (81-99); Mean Platelet Vol. 10.5 fl (6.2-12.0); Platelet Count 189 K/mm3 (150-450); RBC Distribution Width CV 12.6 % (11.6-14.6); RBC Distribution Width SD 42.8 fl (35.1-43.9); Red Blood Count 4.28 M/mm3 (4.2-5.4)
[2018-08-16 06:47] LABS: Scan Indicated on CBC? Y/N NO
[2018-08-16] MEDS: oxyCODONE 5 MG Tablet PO ×2 (06:47→11:34)
[2018-08-16] MEDS: Rivaroxaban 10 MG Tablet PO (06:48)
[2018-08-16] MEDS: Acetaminophen 500 MG Tablet 1000 MG PO ×2 (06:48→14:03)
[2018-08-16 06:49] LABS: Anion Gap 9 (5-15); BUN 17 mg/dL (7-18); Calcium,Total 8.3 mg/dL (8.5-10.1); Chloride 106 mmol/L (98-107); Creatinine, Serum 0.81 mg/dL (0.55-1.02); EST Glomerular Filtration Rate 72 mL/min (>60); Est Glom Filt Rate - Afr Amer 87 mL/min (>60); Estimated Creatinine Clearance 41.62 ml/min; Glucose 93 mg/dL (74-106); Potassium 3.8 mmol/L (3.5-5.1); Sodium Level 141 mmol/L (136-145)
[2018-08-16 06:56] LABS: Bedside Glucose 106 mg/dL (70-110)
--- NOTE | 2018-08-16 07:05 | PCM.PN.HOSP ---
Subjective: Patient with no acute events overnight per self and per nursing report. Following emesis bout the evening prior she had no further marked nausea or emesis and has been up to the bedside chair, ambulating with device assist with pain well controlled and toleration of her meals. Upon evaluation she notes eagerness for evaluation for therapies so she can be discharged home. Patient denies fevers, chills, nausea, emesis, abdominal pain, chest pain or dyspnea. Objective: Physical Examination: General: awake, alert, oriented x 3 and cooperative, seated upright in the bedside chair, improved appearance, eating, NAD. Skin: normal color, turgor, no icterus, cyanosis, s/p R TKR revision, dressing in place. HEENT: AT/NC, EOMI, PERRLA, improved MMM. Lungs: CTA bilaterally, moderate effort, mild decrease BL bases, no rales, ronchi or wheezing. Heart: Regular rate and rhythm; no gallop, rub audible. Abdomen: soft, NTTP, ND, normal BS. Extremities: no cyanosis, clubbing, s/p R Knee replacement revision with dressing in place. Neurological: patient awake, alert, oriented x 3; cognitive function intact; pupils equally reactive to light and accomodation; cranial nerves II-XII grossly normal, moving all 4 extremities although limited RLE s/p R TKR revision, dressing in place, strength improved, mildly to moderately globally decreased. Psychiatric: affect appears normal, no acute evidence of depressive or anxiety feelings. Vitals/I&O's: Vital Signs Temp Pulse Resp BP Pulse Ox 98 F 61 16 119/48 L 92 08/16/18 00:11 08/16/18 00:11 08/16/18 00:11 08/16/18 00:11 08/16/18 00:11 Oxygen Delivery Method Room Air Weight: 160 lb 11.834 oz Body Mass Index (BMI) 29.4 Intake and Output for Last 24 Hours 08/14/18 08/15/18 08/16/18 23:59 23:59 23:59 Intake Total 2185 / 2185 605 / 605 Balance 2185 / 2185 605 / 605 Laboratory Results 08/15/18 09:19: POC Glucose 183 H 08/15/18 09:35: Sodium 142, Potassium 3.7, Chloride 104, Carbon Dioxide 28.0, Anion Gap 10, BUN 18, Creatinine 0.92, Estim Creat Clear Calc 36.64, Est GFR (MDRD) Af Amer 75, Est GFR (MDRD) Non-Af 62, BUN/Creatinine Ratio 19.5, Glucose 166 H, Calcium 8.8 08/15/18 09:35: Magnesium 2.0 08/15/18 16:15: POC Glucose 113 H 08/15/18 22:17: POC Glucose 152 H 08/16/18 05:34: WBC 9.0, RBC 4.28, Hgb 13.5, Hct 41.0, MCV 95.8, MCH 31.5, MCHC 32.9, RDW 12.6, RDW Differential 42.8, Plt Count 189, MPV 10.5 08/16/18 05:34: Sodium 141, Potassium 3.8, Chloride 106, Carbon Dioxide 26.0, Anion Gap 9, BUN 17, Creatinine 0.81, Estim Creat Clear Calc 41.62, Est GFR (MDRD) Af Amer 87, Est GFR (MDRD) Non-Af 72, BUN/Creatinine Ratio 21.0 H, Glucose 93, Calcium 8.3 L 08/16/18 06:46: POC Glucose 106 Current Medications Acetaminophen (Tylenol) 1,000 mg PO Q8 [facility] Last Admin: 08/16/18 06:48 Dose: 1,000 mg Cholecalciferol (Vitamin D) [facility] Last Admin: 08/15/18 15:17 Dose: 2,000 unit Doxycycline Monohydrate (Doxycycline) 100 mg PO BID [facility] Famotidine (Pepcid) 20 mg PO DAILY [facility] Last Admin: 08/15/18 15:18 Dose: 20 mg Hydralazine HCl (Apresoline Iv) 10 mg IV Q4H PRN PRN PRN Reason: SBP > 160 Insulin Human Lispro (Humalog Kwikpen (Bkc)) 0 unit SC [facility]; Protocol Last Admin: 08/16/18 06:48 Dose: Not Given Ketorolac Tromethamine (Toradol) 15 mg IV Q6H PRN PRN PRN Reason: MILD-MOD PAIN (1-5/10) Last Admin: 08/16/18 03:47 Dose: 15 mg Meloxicam (Mobic) 7.5 mg PO BID [facility] Last Admin: 08/15/18 22:20 Dose: 7.5 mg Morphine Sulfate () 2 - 4 mg IV Q2H PRN PRN PRN Reason: SEVERE PAIN (6-10/10) Nutritional Formula (Lactose Free) (Glucerna Shake) 120 ml PO TIDCM [facility] Last Admin: 08/15/18 16:22 Dose: 120 ml Ondansetron HCl (Zofran) 4 mg IV Q8H PRN PRN PRN Reason: NAUSEA Oxycodone HCl (Oxyir) 5 - 10 mg PO Q4H PRN PRN PRN Reason: MOD-SEVERE PAIN (4-10/10) Last Admin: 08/16/18 06:47 Dose: 5 mg Promethazine HCl (Phenergan) 12.5 mg IM Q6H PRN PRN; Protocol PRN Reason: NAUSEA/VOMITING Last Admin: 08/15/18 18:03 Dose: 12.5 mg Rivaroxaban (Xarelto) 10 mg PO DAILY@0600 [facility] Last Admin: 08/16/18 06:48 Dose: 10 mg Senna/Docusate Sodium (Senokot-S, Suzanne-Colace) 2 tablet PO BID [facility] Last Admin: 08/15/18 22:20 Dose: 2 tablet Sodium Chloride () 5 - 15 ml IV UD PRN PRN Reason: SALINE FLUSH Triamterene/HCTZ (Dyazide (G)) 1 cap PO DAILY [facility] Last Admin: 08/15/18 15:17 Dose: 1 cap Medical Necessity - Tobacco Use Smoking Status: Never smoker Tobacco Use: Non-smoker Assessment/Plan All Active Problems Osteoarthritis (Acute) The patient is a 83 y/o F w/ PMHx: DEVAN, HTN, HLD, Diabetes mellitus type II, Severe OA who presents to the [facility] on 08/15/18 for planned revision right partial total knee to a total knee replacement secondary to failed conservative interventions. (1) Severe Osteoarthritis, R Knee: Failed conservative therapies and treatments, no marked pain relief following initial replacement 2010, progressively worsening, admitted per Dr. Omalley for planned R knee revision, post-operative pain management, bowel regimen, DVT Prophylaxis, PT/OT/CM per Orthopedic surgery discretion. Episode of postoperative nausea with emesis following first initial meal, improved, resolved with antiemetic therapies. Tolerating meals this morning, pending PT and OT assessment with plan for outpatient therapies and given patient ambulating in the room with device suspect we will continue with this plan. (2) Diabetes mellitus type II: Continue home insulin regimen, ADA diet, accu checks w/ ISS. (3) Hypertension: Continue home regimen triamterene, hydrochlorothiazide, PRN hydralazine. (4) Hyperlipidemia: Not on regimen, several allergies noted alluding to statin, fenofibrate, gemfibrozil, Lovaza although suspicious given this is only filtered fish oil. (5) DEVAN: Patient is noncompliant with CPAP and has been so for many years, encouraged patient to consideration for reassessment as several new face and nasal masks available. (6) GERD: Famotidine. (7) DVT prophylaxis: RUBIA, Xarelto per orthopedic surgery discretion. Code Visit Inpatient E&M: 19225 Subs Hosp L2
--- NOTE | 2018-08-16 07:05 | PCM.PN.ORT ---
Patient Problems: Active and Suspected Problems Osteoarthritis (Acute) Subjective: The patient was sitting in bed upon examination. Patient denies any chest pain, shortness of breath, dizziness, lightheadedness, nausea or vomiting, or calf pain. Pain is controlled on medications. No adverse overnight events. Overall patient is doing well right now with regards to pain. Patient did have a block postoperatively. Plan is for patient to go home when medically ready. Objective: Vital signs stable and afebrile. Patient is able to plantarflex and dorsiflex actively. Sensation is intact to light touch to saphenous, sural, superficial and deep peroneal, and tibial distribution. Dressing is clean dry and intact. Negative Homans bilaterally, negative signs and symptoms of DVT. - Physical Exam General: Alert, Oriented x3, Cooperative, No apparent distress Vital Signs Temp Pulse Resp BP Pulse Ox 98 F 61 16 119/48 L 92 08/16/18 00:11 08/16/18 00:11 08/16/18 00:11 08/16/18 00:11 08/16/18 00:11 Oxygen Delivery Method Room Air Weight: 72.91 kg Body Mass Index (BMI) 29.4 Intake and Output for Last 24 Hours 08/14/18 08/15/18 08/16/18 23:59 23:59 23:59 Intake Total 2185 / 2185 605 / 605 Balance 2185 / 2185 605 / 605 Laboratory Tests Past 24 Hrs 08/15/18 08/15/18 08/16/18 09:35 09:35 05:34 WBC 9.0 RBC 4.28 Hgb 13.5 Hct 41.0 MCV 95.8 MCH 31.5 MCHC 32.9 RDW 12.6 RDW Differential 42.8 Plt Count 189 MPV 10.5 Sodium 142 Potassium 3.7 Chloride 104 Carbon Dioxide 28.0 Anion Gap 10 BUN 18 Creatinine 0.92 Estim Creat Clear Calc 36.64 Est GFR (MDRD) Af Amer 75 Est GFR (MDRD) Non-Af 62 BUN/Creatinine Ratio 19.5 Glucose 166 H Calcium 8.8 Magnesium 2.0 08/16/18 05:34 WBC RBC Hgb Hct MCV MCH MCHC RDW RDW Differential Plt Count MPV Sodium 141 Potassium 3.8 Chloride 106 Carbon Dioxide 26.0 Anion Gap 9 BUN 17 Creatinine 0.81 Estim Creat Clear Calc 41.62 Est GFR (MDRD) Af Amer 87 Est GFR (MDRD) Non-Af 72 BUN/Creatinine Ratio 21.0 H Glucose 93 Calcium 8.3 L Magnesium POC Glucose 08/16/18 08/15/18 08/15/18 06:46 22:17 16:15 POC Glucose 106 152 H 113 H 08/15/18 09:19 POC Glucose 183 H Medical Necessity - Tobacco Use Smoking Status: Never smoker Tobacco Use: Non-smoker Assessment/Plan All Active Problems Osteoarthritis (Acute) 1. 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 Continue Pain Medications: Tylenol and OxyIR 3. DVT Prophylaxis: Xarelto times 2 weeks 4. PT/OT: Weightbearing as tolerated 5. H & H: 13.5/41.0, asymptomatic 6. Encouraged Incentive Spirometry 7. Continue postoperative medical management per medicine 8. Continue antibiotic while following culture: Currently on doxycycline. Cultures are pending 9. Disposition: Plan will be for possible discharge home today if patient is medically stable, pain is well controlled, and patient tolerates physical therapy. Prescriptions will be attached to chart. Patient will follow-up per postop instructions.
--- NOTE | 2018-08-16 07:11 | PCM.DC.TKR ---
Discharge Diet: No Restrictions, 1800 Calorie Control Diet Discharge Activity: May Not Drive May shower in (days): 1 - Turned dressing away from water Ice area for (Minutes): 20 - every hour while awake. Weight Bearing Status: Weight bearing as tolerated Elevate: Operative Extremity Additional Activity Instructions:: Wear elastic stockings for 2 weeks after your surgery. Call your doctor if your incision/area has: Continuous Slow Oozing, Sudden Increased Bleeding, Increased Pain/ Swelling, Increased Redness, Foul Smelling Discharge Call your doctor if you observe: Fever of 101 or Higher, Coldness, Increased Pain, Numbness or Tingling, Change in Color, Calf discomfort, Uncontrolled pain Remove Dressing in (days):: 4 - Okay to remove on August 20, 2018 Additional Instructions: Follow [facility] postop instructions Allergies/Adverse Reactions: Allergies omega-3 acid ethyl esters [From Lovaza] Allergy (Verified 08/14/18 13:18) Shortness of breath aspirin Adverse Reaction (Verified 08/07/18 14:28) Upset Stomach ciprofloxacin [From Cipro] Adverse Reaction (Verified 08/07/18 14:28) Unknown fenofibrate Adverse Reaction (Verified 08/07/18 14:28) Upset Stomach gemfibrozil Adverse Reaction (Verified 08/07/18 14:28) Diarrhea lisinopril Adverse Reaction (Verified 08/07/18 14:28) Unknown losartan Adverse Reaction (Verified 08/07/18 14:28) Unknown metformin Adverse Reaction (Verified 08/07/18 14:28) Upset Stomach Kprjjtr-Ywr-Xwu Reductase Inhibitor Adverse Reaction (Verified 08/07/18 14:28) Upset Stomach Medications to take at Discharge Cholecalciferol (VIT D3) [Vitamin D3] 2,000 unit PO DAILY 03/09/16 Triamterene/Hydrochlorothiazid [Triamterene-Hctz 37.5-25 mg Tb] 1 tab PO DAILY 03/09/16 Biotin 5,000 mcg PO DAILY 08/07/18 Insulin NPH Human Isophane [Novolin N] 40 units SQ DAILY 08/15/18 Acetaminophen [Tylenol] 1,000 mg PO Q8 #90 tab 08/16/18 Doxycycline 100 mg PO BID #12 cap 08/16/18 Oxycodone [Oxyir] 5 - 10 mg PO Q4H PRN PRN 5 Days #60 tab 08/16/18 Rivaroxaban [Xarelto] 10 mg PO DAILY@0600 #13 tab 08/16/18 Senna/Docusate Sodium [Senokot-S] 2 tab PO BID #20 tab 08/16/18 The following prescriptions were given: Oxycodone [Oxyir] 5 - 10 mg PO Q4H PRN PRN 5 Days #60 tab PRN Reason: Mod-Severe Pain (-04/26) Acetaminophen [Tylenol] 1,000 mg PO Q8 #90 tab Rivaroxaban [Xarelto] 10 mg PO DAILY@0600 #13 tab Doxycycline 100 mg PO BID #12 cap Senna/Docusate Sodium [Senokot-S] 2 tab PO BID #20 tab Primary Care Physician: Corona Manley DO [Primary Care Provider] - Test Results: Test results from this visit will be discussed in further detail at your follow-up appointment, if applicable. Please Follow Up With: [facility] physical therapy When: 08/18/18 @ 1:00 pm Please Follow Up With: Reddy Farmer PA-C When: 08/28/18 @ 2:15 pm
[2018-08-16] MEDS: Senna/Docusate Sodium 1 Tablet 2 TABLET PO (07:50)
[2018-08-16] MEDS: Famotidine 20 MG Tablet PO (07:50)
[2018-08-16] MEDS: Meloxicam 7.5 MG Tablet PO (07:50)
[2018-08-16] MEDS: Triamterene 37.5MG/Hctz 25MG Capsule 1 CAP PO (07:50)
[2018-08-16] MEDS: Doxycycline 100 MG CAPSULE PO (07:53)
[2018-08-16 07:56] VITALS: BP 127/40; PULSE 65; RESP 18; TEMP 36.7; O2SAT 98
--- NOTE | 2018-08-16 10:45 | CASEMGMT ---
RN STELLA Face to Face with patient for initial transition planning/care coordination assessment. RN STELLA introduced self and role at [facility]. Patient lying in bed, alert and oriented. Patient willing to participate in assessment and is able to answer all questions appropriately. Care providers, pharmacy, and demographics verified. Patient wishes to discharge home and has outpatient therapy setup at [facility]. Patient states she has no further needs or concerns at this time. CM to follow for discharge planning needs that may arise. PCP: [facility] Specialists: None Preferred Pharmacy: [facility] Insurance: Stefany TELLEZ Prescription Benefit: Yes Living Will/HPOA: None LNOK: Son Living Arrangements: Patient lives alone in single story [facility] with 1 step to enter the home. Patient independent at home. Transportation: [facility] transport van DME/HHC: Patient has shower chair, toilet riser, grab bars, hand held shower, walker. Disposition Plan: Patient to discharge home with outpatient therapy, family support, and follow-up plans in place. Deborah WHITNEY, RN, CM
[2018-08-16 11:35] LABS: Bedside Glucose 137 mg/dL (70-110)
== END 2018-08-16 14:44 | disposition home or self-care (01) | DRG 468 ==
LOC: ACINP 10:45 → MS3 08-16 06:25
PROVIDERS: Anesthesiology; Admitting Provider Specialist; Family Provider Student in an Organized Health Care Education/Training Program; PCP Student in an Organized Health Care Education/Training Program; Referring Provider Specialist; Visit Provider Family Medicine
PROC: 0SPC0JZ Removal of Synthetic Substitute from Right Knee Joint, Open Approach (ICD-10-PCS; principal; 2018-08-15 10:20)
DX: T84.032A Mechanical loosening of internal right knee prosthetic joint, initial encounter (principal); T84.84XA Pain due to internal orthopedic prosthetic devices, implants and grafts, initial encounter; E11.9 Type 2 diabetes mellitus without complications; G47.33 Obstructive sleep apnea (adult) (pediatric); Z79.4 Long term (current) use of insulin; I10 Essential (primary) hypertension; Z96.651 Presence of right artificial knee joint; E78.00 Pure hypercholesterolemia, unspecified
CPT/HCPCS: 36415; 73560; 80048; 82962; 83735; 85027; 87015; 87070; 87075; 87081; 87102; 87116; 87205; 87206; 97110; 97162; 97165; 97530; 99251; C1776; J7120; G0463; J2405

== ENCOUNTER 2018-09-13 14:30 | Outpatient (RCR) | payer MEDICARE, BC, SELFPAY ==
[2018-08-07 14:45] VITALS: BMI 29.4
[2018-08-15 15:05] VITALS: BMI 29.4
--- NOTE | 2018-08-18 14:23 | HP.PTEVAL ---
Patient's Visit Information JENNIFER CHEEMA is a 83 year old F referred to Physical Therapy by Florentino Omalley MD with a diagnosis of L TKA revision 08/15/18. Date of Evaluation: 08/18/18 Physical Therapist: Al Santamaria DPT, OCS, CSCS - Visit Plan Frequency: 3x /Week Duration: 4-6 Weeks Plan: 3x/week for 3-6 weeks. stationary recimbent bike to home,. patellar mobs, Knee AROM and PROM to tolerance. L LE strength, gait training , steps and ice - Subjective Findings: R knee revision 08/15/18 after TKA 10 years ago. Home the next day. Pain has been to 7/10 as she has been active today with bathing and getting ready. Sleeping pretty good last couple nights, first night was rough. Using wh walker to get around adn WC today. Painful to WB R LE. Lives alone and does basic ADLs OK, bathroom and meals are OK, Lives in a shelter community and has good neightbors. has one step out of house that she did OK with. Activities when healthy: Enjoys writing and has dog that she will walk when she is healthy again. Walks him in the street. has electric scooter. Has barbells that she does upper body ex with. Has stationary bike. has rowing machine. - Pain R knee anteriorly Pain Intensity (Out of 10): 7 Pain Intensity Range: 2, 7 - Objective Pt wants pushed back to PT in WC, been very active today. Tendds to want therapist to move leg holders on WC. Walks with wh walker avoiding L knee flexion at swing. Slow and L antalgia but mod I with wh walker for 40 feet today. Steps up with R and down with L onto steps Mod I with walker. AROM -4 to 67 degrees. Won't let me bend it further. Patella is stiff on the left vs R. HS mod tight L. Tender in L quad minimally generally. Ankle aROM and strength good B, L knee strength not tested but can do most of LAQ in available ROM, SLR is tough but doable, has 5 degree ext lag wit SLR L, R is good. HIp ROM is slow and hesitant on L but able and R is good. Both incisions voered today, slight leakage distal incision that I dressed and cleaned up. No signs of redness heat or excessive swelling. Pt is hesitant to do things on her own and will ask for help with WC and taking coat off. - Goals Goal 1:: 0-110 aROM L knee to facilitate steps adn trasnfers. Goal Time Frame: 4-6 Weeks Goal 2:: Walk I without AD community and home distances safely with 22/30 FGA Goal Time Frame: 4-6 Weeks Goal 3:: Steps reciprocal with one rail in a timely manner Goal Time Frame: 4-6 Weeks Goal 4:: Pain 2/10 at worst and intermittent. Goal Time Frame: 4-6 Weeks - Rehabilitation Potential Physical Therapy Diagnosis: Revision L TKA Rehabilitation Potential: Fair - Anticipated Interventions Patient/Client Instruction: Educate patient on: Condition For the Purpose of:: To decrease pain, To increase ROM, To improve muscle performance and motor function Therapeutic Exercise to Include: Strength training, Gait and locomotor training, Passive ROM, Active ROM For the Purpose of:: To decrease pain, To increase ROM, To improve muscle performance and motor function, To improve ability of physical actions for home/community/work/leisure, To improve gait and locomotor functions Manual Therapy Techniques to Include: Mobilization, Passive ROM For the Purpose of:: To increase ROM Cryotherapy (ice pack, ice massage): Yes For the Purpose of:: To decrease swelling/inflammation Thank you for the opportunity to evaluate your patient. For Medicare and Medicare HMO plans, please review the plan of care and approve it. It will need to be FAXED BACK to us at [phone] for Medicare purposes. For Medicare only, by signing this I certify the plan of care. Please let me know if there are questions or concerns regarding this plan of care. Physician Signature: Date:
--- NOTE | 2018-10-17 18:25 | HP.PT.NRP ---
HP - Discharge Summary (1) - Patient Information JENNIFER CHEEMA was seen in my office for initial evaluation on 08/18/18. The following Plan of Care was established for this patient: Initial Frequency: 3x /Week Initial Duration: 4-6 Weeks - Anticipated Interventions Patient/Client Instruction: Educate patient on: Condition For the Purpose of:: To decrease pain, To increase ROM, To improve muscle performance and motor function Therapeutic Exercise to Include: Strength training, Gait and locomotor training, Passive ROM, Active ROM For the Purpose of:: To decrease pain, To increase ROM, To improve muscle performance and motor function, To improve ability of physical actions for home/community/work/leisure, To improve gait and locomotor functions Manual Therapy Techniques to Include: Mobilization, Passive ROM For the Purpose of:: To increase ROM Cryotherapy (ice pack, ice massage): Yes For the Purpose of:: To decrease swelling/inflammation This patient was last seen in our office 09/13/18. Pertinent comments regarding their Physical therapy will appear below: Pt seen 6 visits of CHAVA barkley seemed to be helping her feel better. She neglected to attend any further visits. At this point, that has been over a month and I will discontinue due to nonattendance. At this point I will be discontinuing this patient from physical therapy. I would be happy to see this patient again in the future if found appropriate by the physician. Thank you! Al Santamaria, DPT, OCS, CSCS
== END 2018-09-13 19:00 | disposition home or self-care (01) ==
LOC: PT 14:30
PROVIDERS: Family Provider Student in an Organized Health Care Education/Training Program; PCP Student in an Organized Health Care Education/Training Program; Referring Provider Specialist; Visit Provider Specialist
DX: Z96.651 Presence of right artificial knee joint (principal); Z47.1 Aftercare following joint replacement surgery
CPT/HCPCS: 97110; 97140; 97162

== ENCOUNTER → 2020-01-09 | Outpatient (CLI) | payer MEDICARE, BC, SELFPAY ==
[2018-08-15 15:05] VITALS: BMI 29.4
--- NOTE | 2020-01-09 10:38 | MRI_ITS ---
STUDY: MRI BRAIN WITH AND WITHOUT CONTRAST REASON FOR EXAM: Female, 84 years old. ataxia,balance issues, difficulty swallowing, TECHNIQUE: Standardized multiplanar fat and water weighted pulse sequences were obtained. 13ml IV Dotarem was administered for the contrast portion of the examination. COMPARISON: None. FINDINGS: There is mild cerebral atrophy with widening of the extra-axial spaces and ventricular dilatation. There are multiple white matter hyperintensities, distributed throughout the deep white matter tracts of the cerebral hemispheres, consistent with moderate chronic white matter ischemic changes. Normal bilateral basal ganglia. Normal thalami. There is no extra-axial fluid accumulation. Normal flow voids within the major intracranial circulation suggesting patency by spin echo criteria. Normal venous enhancement. There is no enhancing intra-axial or extra-axial abnormality. Normal sella turcica, pituitary gland, infundibular stalk, optic chiasm and hypothalamus. Normal tectal plate and pineal gland. Normal midbrain, zandra and medulla. Normal cerebellum. Normal basal cisterns. MRI/Brain W/WO Contrast IMPRESSION: No acute intracranial abnormality or masses. Mild chronic microvascular ischemic changes. Electronically Signed: Maria C Dunlap MD at 12:42 EDT Tel , Service support ,
[2020-01-09 11:15] LABS: CREATININE FINGERSTICK 0.7 mg/dL (0.55-1.02); EGFR FINGERSTICK > 60.0000 mL/min (>60)
== END | disposition home or self-care (01) ==
LOC: MRI 10:35
PROVIDERS: PCP Student in an Organized Health Care Education/Training Program; Referring Provider Student in an Organized Health Care Education/Training Program; Visit Provider Student in an Organized Health Care Education/Training Program
DX: G25.2 Other specified forms of tremor (principal); R27.0 Ataxia, unspecified; R13.12 Dysphagia, oropharyngeal phase
CPT/HCPCS: 70553; A9575